=== PATIENT | female | born 1975 | race Caucasian/White ===

== ENCOUNTER 2019-03-08 08:38 | Day surgery (SDC) | payer OTHER ==
[~2019-03-08] VITALS: Ht 167.6 cm; Wt 109.6 kg
[~2019-03-08 08:38] MED LIST: Advil200 M1; CALCIUM PO; ERGO400 PO; FLUT.05NI; HYDSUL200 PO; LEVO-T75 MCG PO; LEVSOD75 PO; MAGNESIUM PO; MECL25 PO; METF500 PO; METO100ER PO; METO50ER PO; NAPR500 PO; ONDA4 PO; PSEU120ER PO; SULF500 PO; ZINC15 PO
--- NOTE | 2019-03-08 08:57 | NUR ---
History, Chart, Medications and Allergies reviewed before start of procedure. Patient confirms NPO status and agrees with scheduled surgery. Pre-Op teaching done. Pt verbalizes understanding. Lungs clear T/O to Auscultation. Patient reports completing Chlorhexadine shower X2 prior to admission to hospital.
--- NOTE | 2019-03-08 08:58 | NUR ---
Patient States Post-Procedure ride home has been arranged WITH HER .
[2019-03-08] MEDS ORDERED: [UNRECOGNIZED DRUG - OTHER] PO (09:09)
--- NOTE | 2019-03-08 10:02 | NUR ---
COMMUNICATIONS WRITER REPORT COMPLETED AT BEDSIDE WITH MELITA Seaman RN.
--- NOTE | 2019-03-08 10:43 | NUR ---
03/08/19 1043 [address] Day NO PRE-OP ANTIBIOTICS ORDERED.
--- NOTE | 2019-03-08 11:48 | NUR ---
PT TO STEPDOWN. RESTING ON STRETCHER WITH EYES CLOSED. RESPONDS VERBALLY WITHOUT DIFFICULTY. NO C/O PAIN OR DISCOMFORT.
--- NOTE | 2019-03-08 12:07 | NUR ---
PT UP TO BEDSIDE COMMODE, SLOW MOVING BUT STEADY ON FEET. VOIDED SMALL AMOUNT OF URINE WITH BRIGHT RED BLOOD. BECAME NAUSEATED UPON RETURN TO BED. VSS. REPORT GIVEN TO MARQUITA Celaya RN WHO WILL ASSUME CARE OF PATIENT.
--- NOTE | 2019-03-08 12:23 | NUR ---
ZOFRAN GIVEN FOR C/O NAUSEA. TORADOL GIVE FOR C/O PELVIC PAIN.
--- NOTE | 2019-03-08 12:37 | NUR ---
PATIENT STATES HER NAUSEA IS SUBSIDING AND PAIN SEEMS BETTER, NOW RATING PELVIC PAIN 4/10. TOLERATING SIPS OF WATER.
--- NOTE | 2019-03-08 13:19 | NUR ---
STERI STRIPS X3 SITES TO ABD CLEAN, DRY, INTACT. UMBILICAL STERI STRIPS ARE SATURATED IN DRY RED DRAINAGE, NO DRIPPING OR OOZING. Discharge instructions reviewed with patient. Patient verbalizes understanding. Copy given to patient to take home. Denies nausea. States her pelvic pain is down to 2/10. No other c/o verbalized. Patient States Post-Procedure ride home has been arranged with her .
--- NOTE | 2019-03-08 13:38 | NUR ---
PINK DRAINAGE NOTED TO SEGURA PAD APPROX 2X3 INACHES IN SIZE. PATIENT GIVEN MARTI PAD TO WEAR HOME. UP TO DRESS WITH STEADY GAIT. DENIES DIZZINESS.
== END 2019-03-08 13:40 | disposition home or self-care (01) ==
LOC: ORSCMMR 08:38 → ORD 10:00 → ORSCMMR 13:40
DX: R10.2 Pelvic and perineal pain (principal); N83.292 Other ovarian cyst, left side; Q50.5 Embryonic cyst of broad ligament; K21.9 Gastro-esophageal reflux disease without esophagitis; E66.01 Morbid (severe) obesity due to excess calories; Z68.39 Body mass index [BMI] 39.0-39.9, adult; Z79.899 Other long term (current) drug therapy
CPT/HCPCS: 88305; J1100; J1885; J2250; J2405; J2704; J2710; J3010; J7030; J7120

== ENCOUNTER → 2019-05-26 | Outpatient (CLI) | payer OTHER ==
[~2019-05-26] MED LIST changes: +[UNRECOGNIZED DRUG - OTHER] PO
== END | disposition home or self-care (01) ==
LOC: LAB SHORT 17:46 → LAB 17:46
PROVIDERS: Nurse Practitioner
DX: Z01.419 Encounter for gynecological examination (general) (routine) without abnormal findings (principal)
CPT/HCPCS: G0145

== ENCOUNTER → 2020-02-27 | Outpatient (CLI) | payer OTHER ==
[2020-02-27 17:23] LABS: BASOPHILS ABSOLUTE AUTO 0.03 K/mm3 (0.00-0.23); BASOPHILS PERCENT AUTO 1 % (0-2); EOSINOPHILS ABSOLUTE AUTO 0.12 K/mm3 (0.00-0.68); EOSINOPHILS PERCENT AUTO 2 % (0-6); Hematocrit 28.4 % (33.0-51.0); Hemoglobin 9.4 g/dL (11.5-16.0); IMMATURE GRAN ABSOLUTE AUTO 0.02 K/mm3 (0.00-0.10); IMMATURE GRAN PERCENT AUTO 0 % (0-1); LYMPHOCYTES ABSOLUTE AUTO 1.61 K/mm3 (0.84-5.20); LYMPHOCYTES PERCENT AUTO 30 % (21-46); MONOCYTES ABSOLUTE AUTO 0.48 K/mm3 (0.16-1.47); MONOCYTES PERCENT AUTO 9 % (4-13); Mean Corpuscular HGB 27.6 pg (26.0-34.0); Mean Corpuscular HGB Conc 33.1 g/dL (31.5-36.5); Mean Corpuscular Volume 83 fL (80-100); Mean Platelet Volume 9.9 fL (9.1-12.4); NEUTROPHILS ABSOLUTE AUTO 3.19 K/mm3 (1.96-9.15); NEUTROPHILS PERCENT AUTO 59 % (41-73); Platelet Count 257 K/mm3 (150-400); RDW Coefficient Variation 13.5 % (11.7-14.2); RDW Standard Deviation 40.9 fL (35.1-46.3); Red Blood Cell Count 3.41 M/mm3 (3.80-5.20); White Blood Cell Count 5.45 K/mm3 (4.00-11.30)
== END | disposition home or self-care (01) ==
LOC: LAB EV 17:17 → LAB SHORT 17:17
PROVIDERS: Physician Assistant Surgical
DX: I95.1 Orthostatic hypotension (principal)
CPT/HCPCS: 85025

== ENCOUNTER → 2020-04-21 | Outpatient (CLI) | payer OTHER | END | disposition home or self-care (01) | LOC: LAB SHORT 13:45 → PLD 13:45 | DX: N92.0 Excessive and frequent menstruation with regular cycle (principal) | CPT/HCPCS: 88305 ==

== ENCOUNTER 2020-05-12 06:07 | Day surgery (SDC) | payer OTHER ==
[~2020-05-12] VITALS: Ht 169 cm; Wt 108.1 kg
[~2020-05-12 06:07] MED LIST changes: +IRON PO
--- NOTE | 2020-05-12 07:05 | NUR ---
Ambulatory in Day Surgery History, Chart, Medications and Allergies reviewed before start of procedure.Patient confirms NPO status and agrees with scheduled surgery. Patient reports completing Chlorhexadine shower X2 prior to admission to hospital.Surgical site prepped with 2% Chlorhexidine cloth wipe.
[2020-05-12 15:24] LABS: BASOPHILS ABSOLUTE AUTO 0.02 K/mm3 (0.00-0.23); BASOPHILS PERCENT AUTO 0 % (0-2); EOSINOPHILS ABSOLUTE AUTO 0.01 K/mm3 (0.00-0.68); EOSINOPHILS PERCENT AUTO 0 % (0-6); Hematocrit 38.2 % (33.0-51.0); Hemoglobin 11.7 g/dL (11.5-16.0); IMMATURE GRAN ABSOLUTE AUTO 0.03 K/mm3 (0.00-0.10); IMMATURE GRAN PERCENT AUTO 0 % (0-1); LYMPHOCYTES ABSOLUTE AUTO 0.57 K/mm3 (0.84-5.20); LYMPHOCYTES PERCENT AUTO 7 % (21-46); MONOCYTES ABSOLUTE AUTO 0.17 K/mm3 (0.16-1.47); MONOCYTES PERCENT AUTO 2 % (4-13); Mean Corpuscular HGB 24.4 pg (26.0-34.0); Mean Corpuscular HGB Conc 30.6 g/dL (31.5-36.5); Mean Corpuscular Volume 80 fL (80-100); Mean Platelet Volume 9.7 fL (9.1-12.4); NEUTROPHILS ABSOLUTE AUTO 7.77 K/mm3 (1.96-9.15); NEUTROPHILS PERCENT AUTO 91 % (41-73); Platelet Count 229 K/mm3 (150-400); RDW Coefficient Variation 17.6 % (11.7-14.2); RDW Standard Deviation 50.6 fL (35.1-46.3); Red Blood Cell Count 4.79 M/mm3 (3.80-5.20); White Blood Cell Count 8.57 K/mm3 (4.00-11.30)
--- NOTE | 2020-05-12 17:14 | NUR ---
SUMMARY PT POD 0 FOR LAVH. PAIN CONTROLLED W/PO PAIN MEDS. AMBULATED TO RESTROOM AND PASSED FLATUS. TOLERATING PO INTAKE. STERI STRIPS TO ABD INTACT. SMALL AMT VAGINAL BLEEDING NOTED TO PAD. USES CALL LIGHT APPROPRIATELY.
--- NOTE | 2020-05-12 23:28 | NUR ---
PATIENT HAS BEEN UP TO THE BR SEVERAL TIMES WITHOUT DIFFICULTY. SCANT VAGINAL BLEEDING. PAIN IS LOCALIZED TO THE LOW LT AND RT QUADRANTS AND IS CONTROLED WITH HEATING PAD AND PRN PAIN MEDICATIONS. LAP SITES WITHOUT BLEEDING.
--- NOTE | 2020-05-13 05:27 | NUR ---
CONTINUES TO BE INDEPENDENT IN THE ROOM TO BR. NO EVIDENCE OF BLEEDING, SCANT VAGINAL BLOOD SPOTS. PATIENT IS EXPECTANT TO DISCHARGE TODAY. NO ACUTE CHANGES.
--- NOTE | 2020-05-13 11:57 | NUR ---
PER ADVERTISING CONSULTANT DR PHAM CALLED AND REPORTED THAT PT MAY BE DISCHARGED.
[2020-05-13] MEDS ORDERED: OXAYDO5 MG PO (12:12)
[2020-05-13] MEDS ORDERED: ALORA1 EAC1 TOP (12:18)
[2020-05-13] MEDS ORDERED: IBUP800 PO (12:24)
--- NOTE | 2020-05-13 12:25 | NUR ---
DR PHAM HERE TO SEE PT, REPORTS MAY CONT WITH DISCHARGE TODAY.
[2020-05-13] MEDS ORDERED: DOCU100 PO (12:41)
[2020-05-13] MEDS ORDERED: ACET325 PO (12:41)
--- NOTE | 2020-05-13 13:45 | NUR ---
DISCHARGE: PT EATING AND DRINKING, VOIDING, PASSING GAS. PT HAS "SPOTTING". PT REPORTS UNDERSTANDING OF DISCHARGE INSTRUCTIONS INCLUDING NOTHING PER VAGINA, MEDICATIONS. PT REPORTS HAVING BELONGINGS INCLUDING PHONE AND MANAGER NICU. PT SENT WITH DISCHARGE PAPERWORK INCLUDING SCRIPTS. HERE TO GIVE PT RIDE HOME.
== END 2020-05-13 13:45 | disposition home or self-care (01) ==
LOC: ORSCMMR 06:07 → ORD 09:30 → SURS 11:20 → ORSCMMR 05-13 13:45 → ORD 06-08 09:30
PROVIDERS: Obstetrics & Gynecology
PROC: 0UT9FZZ Resection of Uterus, Via Natural or Artificial Opening With Percutaneous Endoscopic Assistance (ICD-10-PCS; principal; 2020-05-12 07:30)
PROC: 0UT0FZZ Resection of Right Ovary, Via Natural or Artificial Opening With Percutaneous Endoscopic Assistance (ICD-10-PCS; principal; 2020-05-12 07:30)
PROC: 0UT5FZZ Resection of Right Fallopian Tube, Via Natural or Artificial Opening With Percutaneous Endoscopic Assistance (ICD-10-PCS; principal; 2020-05-12 07:30)
DX: N92.0 Excessive and frequent menstruation with regular cycle (principal); D64.9 Anemia, unspecified; E03.9 Hypothyroidism, unspecified; E28.2 Polycystic ovarian syndrome; L93.0 Discoid lupus erythematosus; Z68.37 Body mass index [BMI] 37.0-37.9, adult; E66.9 Obesity, unspecified; Z79.899 Other long term (current) drug therapy
CPT/HCPCS: 36415; 85025; 86850; 86900; 86901; 88307; A9270; J0690; J1100; J1170; J1885; J2405; J2704; J3010; J7120